=== PATIENT | male | born 1975 | race American Indian/Alaskan Native ===

== ENCOUNTER 2017-05-15 08:31 | Day surgery (SDC) | payer MEDICAID ==
[2017-05-15 09:10] VITALS: BMI 21.6
[2017-05-15] MEDS ORDERED: Sodium Chloride 0.9% 500 ML IV SCH (09:36)
[2017-05-15] MEDS ORDERED: Propofol 10 mg/ml Inj (20 ML) ONE (09:51)
[2017-05-15] MEDS ORDERED: Lidocaine Hydrochloride 5 ML INJ ONE (09:52)
[2017-05-15 12:59] VITALS: TEMP 97
[2017-05-15 13:03] VITALS: RESP 20
[2017-05-15 13:09] VITALS: BP 165/90; PULSE 72; O2SAT 100
== END 2017-05-15 11:15 | disposition home or self-care (01) ==
LOC: C.ENDO 08:31
PROVIDERS: ATTEND Internal Medicine Gastroenterology
DX: R13.10 Dysphagia, unspecified (principal); K21.9 Gastro-esophageal reflux disease without esophagitis; K29.50 Unspecified chronic gastritis without bleeding; E10.9 Type 1 diabetes mellitus without complications
CPT/HCPCS: 43239; 82948; 88305; 88312; 88342; J2001; J2704; J7040